=== PATIENT | female | born 1970 | race Two or more races ===

== ENCOUNTER → 2018-04-16 | Emergency (ER) | payer BC ==
[~2018-04-16] VITALS: Ht 157.5 cm; Wt 77.1 kg
[~2018-04-16] MED LIST: ACETAMINOPHEN ES 500 MG TABLET ONE; ACETAMINOPHEN ES 500 MG TABLET PO ONE; IBUPROFEN 600 MG TABLET PO ONE; MECLIZINE HCL 12.5 MG TABLET PO ONE; MECLIZINE HCL 25 MG TABLET ONE
--- NOTE | 2018-04-16 13:50 | NUR ---
Presents to ER c/o worsening migraine x 2 weeks. a/ox 4, breathing even and unlabored. no neuro deficits. no sob, nad, vitals stable. safety and comfort measures in place. awaiting md orders.
--- NOTE | 2018-04-16 14:54 | NUR ---
Transported for CT head.
[2018-04-16 15:45] VITALS: BP 114/75
== END ==
LOC: ER 13:53
DX: R51 Headache (principal); Z98.890 Other specified postprocedural states; Z88.5 Allergy status to narcotic agent
CPT/HCPCS: 70450; 99284; A4606; J8597; Z7610